=== PATIENT | male | born 2000 | race Caucasian/White ===

== ENCOUNTER → 2022-03-02 12:47 | Outpatient (BNVA) | payer OTHER, SELFPAY | PROVIDERS: Visit Provider Emergency Medicine | DX: L50.9 Urticaria, unspecified (principal); T78.40XA Allergy, unspecified, initial encounter | CPT/HCPCS: 86003; 86008 ==

== ENCOUNTER → 2023-11-01 09:44 | Outpatient (BNVA) | payer BC, SELFPAY | PROVIDERS: Visit Provider Nurse Practitioner | DX: Z86.39 Personal history of other endocrine, nutritional and metabolic disease (principal); Z86.73 Personal history of transient ischemic attack (TIA), and cerebral infarction without residual deficits | CPT/HCPCS: 80053; 80061; 84443 ==